=== PATIENT | female | born 1950 | race American Indian/Alaskan Native ===

== ENCOUNTER 2018-09-29 11:22 | Emergency (ER) | payer MEDICARE ==
--- NOTE | 2018-09-29 11:52 | Event Note ---
ED Screening Note Date of service: 09/29/18 Time: 11:36 ED Screening Note: 68 y/o female comes in for weekness and feeling unsteady. She reports that she is coming off clonazapam. This initial assessment/diagnostic orders/clinical plan/treatment(s) is/are subject to change based on patients health status, clinical progression and re- assessment by fellow clinical providers in the ED. Further treatment and workup at subsequent clinical providers discretion. Patient/guardian urged not to elope from the ED as their condition may be serious if not clinically assessed and managed. Initial orders include:
--- NOTE | 2018-09-29 12:18 | Emergency Department Report ---
ED General Adult HPI - General Chief complaint: Weakness Stated complaint: NAUSEA/LIGHTHEADED/LFT SIDE PAIN Time Seen by Provider: 09/29/18 12:16 Source: patient Mode of arrival: Wheelchair Limitations: No Limitations - History of Present Illness Initial comments: This is a 68-year-old female complains of generalized weakness. She denies fever or chills. She denies any change in her bowel or bladder habits. She's had no respiratory symptoms. He has a history of hypertension but no problems with her thyroid that are known. She states that she checked in because she was here already as her son was in a motor vehicle accident. She states that a nurse advised her that she should check in for her symptoms of generalized weakness. She states that she is able to walk. She's had no focal neurological change. She is not complaining of pain. Patient states that her symptoms began upon the discontinuance of clonazepam approximately 3 weeks ago. She states that she was placed on another medicine perhaps for depression. She does not know the name of the medication. She states that she takes Cartia or the generic for her blood pressure. She is generally a poor historian. -: week(s) Associated Symptoms: denies other symptoms, weakness - Related Data Previous Rx's Medication Instructions Recorded Last Taken Type cefUROXime [Ceftin] 250 mg PO Q12H #14 tablet 09/29/18 Unknown Rx Allergies Allergy/AdvReac Type Severity Reaction Status Date / Time codeine Allergy Itching Verified 09/29/18 11:36 ED Review of Systems ROS: Stated complaint: NAUSEA/LIGHTHEADED/LFT SIDE PAIN Other details as noted in HPI Constitutional: weakness. denies: chills, fever Eyes: denies: eye pain, eye discharge, vision change ENT: denies: ear pain, throat pain Respiratory: denies: cough, shortness of breath, wheezing Cardiovascular: denies: chest pain, palpitations Endocrine: no symptoms reported Gastrointestinal: denies: abdominal pain, nausea, diarrhea Genitourinary: denies: urgency, dysuria, discharge Musculoskeletal: denies: back pain, joint swelling, arthralgia Skin: denies: rash, lesions Neurological: denies: headache, weakness, paresthesias Psychiatric: denies: anxiety, depression Hematological/Lymphatic: denies: easy bleeding, easy bruising ED Past Medical Hx - Past Medical History Additional medical history: Hypertension - Social History Smoking Status: Never Smoker Substance Use Type: None Other Social History: States visiting family from out of town - Medications Home Medications: Home Medications Medication Instructions Recorded Confirmed Last Taken Type cefUROXime [Ceftin] 250 mg PO Q12H #14 tablet 09/29/18 Unknown Rx ED Physical Exam - General Limitations: No Limitations General appearance: alert, in no apparent distress - Head Head exam: Present: atraumatic, normocephalic - Eye Eye exam: Present: normal appearance, PERRL, EOMI. Absent: scleral icterus - ENT ENT exam: Present: mucous membranes moist - Neck Neck exam: Present: normal inspection. Absent: tenderness, meningismus - Respiratory Respiratory exam: Present: normal lung sounds bilaterally. Absent: respiratory distress - Cardiovascular Cardiovascular Exam: Present: regular rate, normal rhythm. Absent: systolic murmur, diastolic murmur, rubs, gallop - GI/Abdominal GI/Abdominal exam: Present: soft, normal bowel sounds. Absent: distended, tenderness, guarding, rebound, rigid - Extremities Exam Extremities exam: Present: normal inspection - Back Exam Back exam: Present: normal inspection - Neurological Exam Neurological exam: Present: alert, oriented X3, CN II-XII intact. Absent: motor sensory deficit - Psychiatric Psychiatric exam: Present: depressed, flat affect - Skin Skin exam: Present: warm, dry, intact, normal color. Absent: rash ED Course Vital Signs 09/29/18 09/29/18 09/29/18 11:35 12:20 12:31 Temperature 98.5 F Pulse Rate 84 74 73 Respiratory 16 15 11 L Rate Blood Pressure 145/84 151/81 Blood Pressure [Left] O2 Sat by Pulse 99 100 100 Oximetry 09/29/18 09/29/18 09/29/18 12:45 12:52 12:53 Temperature 98.4 F Pulse Rate 69 75 Respiratory 12 16 15 Rate Blood Pressure 151/81 Blood Pressure 151/81 [Left] O2 Sat by Pulse 100 100 100 Oximetry 09/29/18 09/29/18 09/29/18 13:00 13:15 13:31 Temperature Pulse Rate 80 76 88 Respiratory 13 9 L 13 Rate Blood Pressure 159/81 151/81 151/81 Blood Pressure [Left] O2 Sat by Pulse 100 100 100 Oximetry 09/29/18 13:45 Temperature Pulse Rate 88 Respiratory 18 Rate Blood Pressure 151/81 Blood Pressure [Left] O2 Sat by Pulse 100 Oximetry ED Medical Decision Making - Lab Data Result diagrams: 09/29/18 11:53 09/29/18 11:53 Laboratory Results - last 24 hr 09/29/18 09/29/18 09/29/18 11:53 11:53 12:36 WBC 8.7 RBC 4.99 Hgb 11.7 Hct 37.2 MCV 75 L MCH 23 L MCHC 31 RDW 16.5 H Plt Count 311 Lymph % (Auto) 24.0 Gregg % (Auto) 8.3 H Eos % (Auto) 2.7 Baso % (Auto) 0.7 Lymph # 2.1 Gregg # 0.7 Eos # 0.2 Baso # 0.1 Seg Neutrophils % 64.3 Seg Neutrophils # 5.6 Sodium 141 Potassium 4.1 Chloride 104.7 Carbon Dioxide 25 Anion Gap 15 BUN 8 Creatinine 0.8 Estimated GFR > 60 BUN/Creatinine Ratio 10 Glucose 105 H Calcium 9.3 Total Bilirubin 0.30 AST 10 ALT 10 Alkaline Phosphatase 117 Total Protein 8.0 Albumin 4.1 Albumin/Globulin Ratio 1.1 TSH 0.597 Free T4 1.08 Laboratory Results - last 24 hr 09/29/18 09/29/18 09/29/18 11:53 11:53 12:36 WBC 8.7 RBC 4.99 Hgb 11.7 Hct 37.2 MCV 75 L MCH 23 L MCHC 31 RDW 16.5 H Plt Count 311 Lymph % (Auto) 24.0 Gregg % (Auto) 8.3 H Eos % (Auto) 2.7 Baso % (Auto) 0.7 Lymph # 2.1 Gregg # 0.7 Eos # 0.2 Baso # 0.1 Seg Neutrophils % 64.3 Seg Neutrophils # 5.6 Sodium 141 Potassium 4.1 Chloride 104.7 Carbon Dioxide 25 Anion Gap 15 BUN 8 Creatinine 0.8 Estimated GFR > 60 BUN/Creatinine Ratio 10 Glucose 105 H Calcium 9.3 Total Bilirubin 0.30 AST 10 ALT 10 Alkaline Phosphatase 117 Total Protein 8.0 Albumin 4.1 Albumin/Globulin Ratio 1.1 TSH 0.597 Free T4 1.08 Laboratory Results - last 24 hr 09/29/18 09/29/18 09/29/18 11:53 11:53 12:36 WBC 8.7 RBC 4.99 Hgb 11.7 Hct 37.2 MCV 75 L MCH 23 L MCHC 31 RDW 16.5 H Plt Count 311 Lymph % (Auto) 24.0 Gregg % (Auto) 8.3 H Eos % (Auto) 2.7 Baso % (Auto) 0.7 Lymph # 2.1 Gregg # 0.7 Eos # 0.2 Baso # 0.1 Seg Neutrophils % 64.3 Seg Neutrophils # 5.6 Sodium 141 Potassium 4.1 Chloride 104.7 Carbon Dioxide 25 Anion Gap 15 BUN 8 Creatinine 0.8 Estimated GFR > 60 BUN/Creatinine Ratio 10 Glucose 105 H Calcium 9.3 Total Bilirubin 0.30 AST 10 ALT 10 Alkaline Phosphatase 117 Total Protein 8.0 Albumin 4.1 Albumin/Globulin Ratio 1.1 TSH 0.597 Free T4 1.08 Urine Color Urine Turbidity Urine pH Ur Specific Parrott Urine Protein Urine Glucose (UA) Urine Ketones Urine Blood Urine Nitrite Urine Bilirubin Urine Urobilinogen Ur Leukocyte Esterase Urine WBC (Auto) Urine RBC (Auto) U Epithel Cells (Auto) Urine Mucus Urine Opiates Screen Urine Methadone Screen Ur Barbiturates Screen Ur Phencyclidine Scrn Ur Amphetamines Screen U Benzodiazepines Scrn Urine Cocaine Screen U Marijuana (THC) Screen Drugs of Abuse Note 09/29/18 09/29/18 14:00 14:09 WBC RBC Hgb Hct MCV MCH MCHC RDW Plt Count Lymph % (Auto) Gregg % (Auto) Eos % (Auto) Baso % (Auto) Lymph # Gregg # Eos # Baso # Seg Neutrophils % Seg Neutrophils # Sodium Potassium Chloride Carbon Dioxide Anion Gap BUN Creatinine Estimated GFR BUN/Creatinine Ratio Glucose Calcium Total Bilirubin AST ALT Alkaline Phosphatase Total Protein Albumin Albumin/Globulin Ratio TSH Free T4 Urine Color Yellow Urine Turbidity Clear Urine pH 8.0 H Ur Specific Parrott 1.012 Urine Protein <15 mg/dl Urine Glucose (UA) Neg Urine Ketones Neg Urine Blood Neg Urine Nitrite Neg Urine Bilirubin Neg Urine Urobilinogen < 2.0 Ur Leukocyte Esterase Mod Urine WBC (Auto) 6.0 Urine RBC (Auto) 2.0 U Epithel Cells (Auto) 2.0 Urine Mucus Few Urine Opiates Screen Presumptive negative Urine Methadone Screen Presumptive negative Ur Barbiturates Screen Presumptive negative Ur Phencyclidine Scrn Presumptive negative Ur Amphetamines Screen Presumptive negative U Benzodiazepines Scrn Presumptive negative Urine Cocaine Screen Presumptive negative U Marijuana (THC) Screen Presumptive negative Drugs of Abuse Note Disclamer - EKG Data -: EKG Interpreted by Me EKG shows normal: sinus rhythm, axis, intervals, QRS complexes, ST-T waves Rate: normal - EKG Data Interpretation: normal EKG Critical care attestation.: If time is entered above; I have spent that time in minutes in the direct care of this critically ill patient, excluding procedure time. ED Disposition Clinical Impression: Generalized weakness UTI (urinary tract infection) Qualifiers: Urinary tract infection type: site unspecified Hematuria presence: without hematuria Qualified Code(s): N39.0 - Urinary tract infection, site not specified Disposition: DC- TO HOME OR SELFCARE Is pt being admited?: No Does the pt Need Aspirin: No Condition: Stable Instructions: Urinary Tract Infection in Women (ED), Weakness (ED) Additional Instructions: Increase fluids. Rx as directed. Follow-up on your urine culture with her primary care physician early next week. Return any acute change or problem. Prescriptions: cefUROXime [Ceftin] 250 mg PO Q12H #14 tablet Referrals: PRIMARY CARE, [Referring] - 3-5 Days Time of Disposition: 15:09
[2018-09-29] MEDS ORDERED: NACL 0.9% 1000 ML 1,000 ML IV ONE (12:23)
[2018-09-29 12:29] LABS: Basophils # (Auto) 0.1 K/mm3 (0.0-0.1); Basophils % (Auto) 0.7 % (0.0-1.8); Eosinophils # (Auto) 0.2 K/mm3 (0.0-0.4); Eosinophils % (Auto) 2.7 % (0.0-4.3); Hematocrit 37.2 % (30.3-42.9); Hemoglobin 11.7 gm/dl (10.1-14.3); Lymphocytes # (Auto) 2.1 K/mm3 (1.2-5.4); Mean Corpuscular HGB Conc 31 % (30-34); Mean Corpuscular Volume 75 fl (79-97); Monocytes # (Auto) 0.7 K/mm3 (0.0-0.8); Monocytes % (Auto) 8.3 % (0.0-7.3); Platelet Count 311 K/mm3 (140-440); Red Blood Count 4.99 M/mm3 (3.65-5.03); Red Cell Distribution Width 16.5 % (13.2-15.2)
[2018-09-29 12:32] LABS: Alanine Aminotransferase 10 units/L (7-56); Albumin 4.1 g/dL (3.9-5); BUN/Creatinine Ratio 10; Blood Urea Nitrogen 8 mg/dL (7-17); Calcium 9.3 mg/dL (8.4-10.2); Hemolysis Index 3
[2018-09-29 13:11] VITALS: BP 151/81
[2018-09-29 13:22] LABS: Free T4 (Free Thyroxine) 1.08 ng/dL (0.76-1.46)
[2018-09-29 14:44] LABS: Bilirubin,Urine NEG (Negative); Blood,Urine NEG (Negative); Color,Urine Yellow (Yellow); Mucus,Urine FEW /HPF; Protein,Urine <15 mg/dL mg/dL (Negative); Urobilinogen,Urine < 2.0 mg/dL (<2.0)
[2018-09-29 14:50] LABS: Amphetamine Screen,Urine PRESUMPTIVE NEGATIVE; Benzodiazepines Screen,Urine PRESUMPTIVE NEGATIVE; Cannabinoid Screen,Urine PRESUMPTIVE NEGATIVE; Cocaine Screen,Urine PRESUMPTIVE NEGATIVE; Methadone Screen,Urine PRESUMPTIVE NEGATIVE; Opiate Screen,Urine PRESUMPTIVE NEGATIVE
== END 2018-09-29 15:24 | disposition home or self-care (01) ==
LOC: ED 11:22
DX: R53.1 Weakness (principal); N39.0 Urinary tract infection, site not specified; I10 Essential (primary) hypertension; Z79.899 Other long term (current) drug therapy
CPT/HCPCS: 36415; 80053; 80307; 81001; 84439; 84443; 85025; 87086; 93005; 93010; 96360; 99283; J7030